=== PATIENT | female | born 2000 | race Caucasian/White ===

== ENCOUNTER → 2020-09-14 | Outpatient (CLI) | payer OTHER ==
[~2020-09-14] MED LIST: IBUPROFEN600 MG PO
== END ==
LOC: KOH-I 16:00
DX: M79.642 Pain in left hand (principal)
CPT/HCPCS: 73130

== ENCOUNTER → 2021-06-06 | Outpatient (CLI) | payer OTHER | LOC: KOH-I 08:00 | DX: M25.561 Pain in right knee (principal) | CPT/HCPCS: 73721 ==

== ENCOUNTER 2021-12-03 16:18 | Emergency (ER) | payer OTHER ==
[2021-12-03] MEDS ORDERED: CYCLOBENZAPRINE10 MG PO (22:01)
== END 2021-12-03 22:11 | disposition home or self-care (01) ==
LOC: ER1 16:18
DX: S09.90XA Unspecified injury of head, initial encounter (principal); S19.9XXA Unspecified injury of neck, initial encounter; S89.91XA Unspecified injury of right lower leg, initial encounter; V43.52XA Car driver injured in collision with other type car in traffic accident, initial encounter; Y92.410 Unspecified street and highway as the place of occurrence of the external cause
CPT/HCPCS: 70450; 72125; 72128; 72131; 73552; 73562; 73590; 73600; 73620; 99284

== ENCOUNTER 2021-12-05 13:47 | Emergency (ER) | payer OTHER, MEDICAID ==
[~2021-12-05 13:47] MED LIST changes: +CYCLOBENZAPRINE10 MG PO
[2021-12-05] MEDS ORDERED: ZANAFLEX4 M1 PO (16:21)
== END 2021-12-05 16:56 | disposition home or self-care (01) ==
LOC: ER1 13:47
DX: S13.4XXA Sprain of ligaments of cervical spine, initial encounter (principal); Z91.040 Latex allergy status; V49.49XA Driver injured in collision with other motor vehicles in traffic accident, initial encounter; Y92.410 Unspecified street and highway as the place of occurrence of the external cause
CPT/HCPCS: 96372; 99283; J1885